=== PATIENT | male | born 1970 | race Hispanic/Latino ===

== ENCOUNTER 2016-08-23 22:07 | Emergency (ER) | payer OTHER ==
[2016-08-23 22:13] VITALS: BP 143/97; PULSE 106; RESP 20; TEMP 98; O2SAT 97
[2016-08-23] MEDS ORDERED: Sodium Chloride 0.9% 1,000 ML IV STA (23:20)
--- NOTE | 2016-08-24 22:45 | CARD ---
APPROVED REPORT EKG Measurement Heart [id number] 140P46 [id number] <Conclusion> Normal sinus rhythm Normal ECG
--- NOTE | 2016-08-24 22:45 | CARD ---
APPROVED REPORT EKG Measurement Heart [id number] MO 136P47 [id number] <Conclusion> Normal sinus rhythm Normal ECG
== END 2016-08-23 23:30 | disposition left against medical advice (07) ==
LOC: H.ER 22:07
DX: Z02.89 Encounter for other administrative examinations (principal)